=== PATIENT | male | born 1990 | race Caucasian/White ===

== ENCOUNTER → 2017-10-04 | Emergency (ER) | payer SELFPAY ==
[~2017-10-04] VITALS: Ht 182.9 cm; Wt 153.4 kg
[~2017-10-04] MED LIST: ALBUTEROL
[2017-10-05 00:39] LABS: HEMATOCRIT 44.1 % (38.0-50.0); HEMOGLOBIN 15.1 G/DL (12.5-16.6); MCH 31.9 PG (29.0-34.0); MCHC 34.2 G/DL (30.0-36.0); MCV 93.2 FL (86-99); PLATELET COUNT 206 K/uL (156-360); RBC DIS.WIDTH-CV 12.3 % (11.8-14.6); RBC DIS.WIDTH-SD 42.2 % (39-53); RED BLOOD COUNT 4.73 M/uL (4.00-5.50); WHITE BLOOD COUNT 11.9 K/uL (4.1-10.2)
[2017-10-05 00:54] LABS: CHLORIDE 108 mEq/L (99-109); POTASSIUM 3.7 mEq/L (3.7-5.4); SODIUM 143 mEq/L (136-147)
[2017-10-05 00:56] LABS: GLUCOSE 106 mg/dL (70-99)
[2017-10-05 01:00] LABS: GFR ESTIMATE (CALCULATED) > 59 mL/min/ (58.99-99999)
[2017-10-05 01:01] LABS: UREA NITROGEN (BUN) 14 mg/dL (9-23)
[2017-10-05 01:09] LABS: TROP-I INTERPRETATION NEGATIVE; TROPONIN-I < 0.01 ng/mL (0.0-0.30)
[2017-10-05 02:11] LABS: TROP-I INTERPRETATION NEGATIVE; TROPONIN-I 0.01 ng/mL (0.0-0.30)
[2017-10-05 02:38] LABS: CREATINE KINASE 183 IU/L (1-294)
[2017-10-05 03:21] VITALS: BP 152/96
== END | disposition home or self-care (01) ==
LOC: EME 23:17
PROVIDERS: Emergency Medicine
DX: T75.4XXA Electrocution, initial encounter (principal); W86.8XXA Exposure to other electric current, initial encounter; R07.89 Other chest pain; J45.909 Unspecified asthma, uncomplicated; F17.200 Nicotine dependence, unspecified, uncomplicated
CPT/HCPCS: 71046; 80048; 82550; 84484; 85027; 93005; 99281; 99285

== ENCOUNTER 2017-10-22 20:18 | Inpatient (IN) | payer SELFPAY ==
[~2017-10-22] VITALS: Ht 182.9 cm; Wt 152.0 kg
[2017-10-22 20:48] LABS: BASOPHIL (%) 0.4 % (0-1); BASOPHIL COUNT 0.1 K/uL (0-0.1); EOSINOPHIL (%) 2.7 % (0-5); EOSINOPHIL COUNT 0.4 K/uL (0-0.3); HEMATOCRIT 45.5 % (38.0-50.0); HEMOGLOBIN 15.5 G/DL (12.5-16.6); IMMATURE GRANULOCYTE (%) 0.4 % (0.0-0.7); LYMPHOCYTE (%) 21.8 % (15-42); MCH 31.3 PG (29.0-34.0); MCHC 34.1 G/DL (30.0-36.0); MCV 91.9 FL (86-99); MONOCYTE (%) 9.3 % (3-12); MONOCYTE COUNT 1.3 K/uL (0-0.8); NEUTROPHIL (%) 65.4 % (45-76); NEUTROPHIL COUNT 9.1 K/uL (1.8-6.4); PLATELET COUNT 238 K/uL (156-360); RBC DIS.WIDTH-CV 12.3 % (11.8-14.6); RBC DIS.WIDTH-SD 41.8 % (39-53); RED BLOOD COUNT 4.95 M/uL (4.00-5.50); WHITE BLOOD COUNT 13.9 K/uL (4.1-10.2)
[2017-10-22 20:59] LABS: CHLORIDE 107 mEq/L (99-109); POTASSIUM 4.4 mEq/L (3.7-5.4); SODIUM 146 mEq/L (136-147)
[2017-10-22 21:01] LABS: GLUCOSE 99 mg/dL (70-99)
[2017-10-22 21:04] LABS: SERUM ETHYL ALCOHOL < 10 mg/dL
[2017-10-22 21:05] LABS: CREATININE 1.3 mg/dL (0.6-1.3); GFR ESTIMATE (CALCULATED) > 59 mL/min/ (58.99-99999)
[2017-10-22 21:06] LABS: UREA NITROGEN (BUN) 17 mg/dL (9-23)
[2017-10-23 09:19] LABS: AMPHETAMINE NEGATIVE (500 ng/mL); BARBITURATES NEGATIVE (200 ng/mL); BENZODIAZEPINES NEGATIVE (150 ng/mL); COCAINE NEGATIVE (150 ng/mL); METHADONE NEGATIVE (200 ng/mL); METHAMPHETAMINE NEGATIVE (500 ng/mL); OPIATES (MORPHINE) NEGATIVE (100 ng/mL); OXYCODONE NEGATIVE (100 ng/mL); PHENCYCLIDINE NEGATIVE (25 ng/mL); THC CANNABINOIDS NEGATIVE (50 ng/mL); TRICYCLIC ANTIDEPRESSANTS NEGATIVE (300 ng/mL)
[2017-10-23 09:20] LABS: BUPRENORPHINE NEGATIVE (10 ng/mL); PROPOXYPHENE NEGATIVE (300 ng/mL)
[2017-10-23] MEDS ORDERED: PROCARDIA20 MG PO (13:44)
[2017-10-23] MEDS ORDERED: OMEPRAZOLE40 M1 PO (13:44)
[2017-10-23] MEDS ORDERED: HYDROCHLOROTHIA25 MG PO (13:45)
[2017-10-23] MEDS ORDERED: B-121000 MC2 PO (13:45)
[2017-10-23] MEDS ORDERED: COZAAR25 MG PO (13:45)
[2017-10-23] MEDS ORDERED: ONE DAILY1 EAC3 PO (13:45)
[2017-10-23] MEDS ORDERED: LO-DOSE ASPIRIN81 M1 PO (13:46)
[2017-10-23] MEDS ORDERED: VITAMIN D33000 UNIT PO (13:46)
[2017-10-23] MEDS ORDERED: POTASSIUM GLUCO99 M1 PO (13:46)
[2017-10-23 14:17] VITALS: BP 124/73
[2017-10-23 16:07] VITALS: BP 124/73
[2017-10-24 07:48] VITALS: BP 113/61
[2017-10-24 16:32] VITALS: BP 140/71
[2017-10-25 07:22] VITALS: BP 110/63
[2017-10-25] MEDS ORDERED: ESCITALOPRAM OX10 MG PO (08:42)
== END 2017-10-25 10:30 | disposition home or self-care (01) | DRG 882 ==
LOC: EME 20:18 → ENRESERV 10-23 14:11 → 1WEST 10-23 15:45
PROVIDERS: Emergency Medicine
DX: F43.22 Adjustment disorder with anxiety (principal); R45.851 Suicidal ideations; I27.20 Pulmonary hypertension, unspecified; I10 Essential (primary) hypertension; J45.909 Unspecified asthma, uncomplicated; F17.200 Nicotine dependence, unspecified, uncomplicated; E66.01 Morbid (severe) obesity due to excess calories; Z68.42 Body mass index [BMI] 45.0-49.9, adult; Z91.5 Personal history of self-harm; Z79.82 Long term (current) use of aspirin
CPT/HCPCS: 80048; 85025; 90837; 99281; 99285; G0480